=== PATIENT | male | born 1950 | race Caucasian/White ===

== ENCOUNTER 2022-09-09 10:59 | Day surgery (SDC) | payer MEDICARE, BC ==
[2022-09-09] MEDS ORDERED: PROPOFOL 500 MG/50 ML 500 MG/50 ML VIAL ONE (11:12)
--- NOTE | 2022-09-09 11:13 | ANESTHESIA ---
Pre-Anesthesia VS, & Labs - Diagnosis screening - Procedure colonoscopy - NPO Other (prep as directed) Home Medications and Allergies Home Medications: Ambulatory Orders Rosuvastatin Calcium [Crestor] 10 mg PO DAILY 09/08/22 Rosuvastatin Calcium [Crestor] 10 mg PO DAILY 09/08/22 Allergies/Adverse Reactions: Allergies Allergy/AdvReac Type Severity Reaction Status Date / Time No Known Drug Allergies Allergy Verified 09/09/22 10:57 Anes History & Medical History - Anesthetic History Anesthesia Complications: reports: No previous complications - Medical History Cardiovascular: reports: High cholesterol Pulmonary: reports: None Gastrointestinal: reports: None Urinary: reports: None Musculoskeletal: reports: None Endocrine/Autoimmune: reports: None Skin: reports: None - Surgical History General: reports: Colonoscopy Dermatologic: reports: Skin cancer surgery Exam General: Alert, Oriented x3 Dental: WNL Mouth Opening: Greater than 4 Fingerbreadths Neck Mobility: Normal Mallampati classification: II Respiratory: Lungs clear Cardiovascular: Regular rate Plan Anesthesia Type: Total IV Consent for Procedure(s) Verified and Reviewed: Yes Code Status: Attempt Resuscitation ASA classification: 2-Mild systemic disease Is this case an emergency?: No
[2022-09-09] MEDS ORDERED: LACTATED RINGERS 1,000 ML IV ONE (11:46)
[2022-09-09] MEDS ORDERED: LACTATED RINGERS 700 ML IV ONE (12:31)
[2022-09-09 12:54] VITALS: BP 129/81
--- NOTE | 2022-09-09 13:14 | ANESTHESIA POST OP EVALUATION ---
Anesthesia Post Eval - Post Anesthesia Eval Vitals: Last Vital Signs Temp 36.0 C L 09/09/22 12:53 Pulse 72 09/09/22 12:53 Resp 16 09/09/22 12:53 BP 129/81 H 09/09/22 12:53 Pulse Ox 100 09/09/22 12:53 O2 Flow Rate CV Function Including HR & BP: Stable Pain Control: Satisfactory Nausea & Vomiting: Negative Mental Status: Baseline Respiratory Status: Airway Patent Hydration Status: Satisfactory Anesthesia Complications: None
== END 2022-09-09 11:00 | disposition home or self-care (01) ==
LOC: SDS 10:59
PROVIDERS: ATTEND Surgery
DX: Z12.11 Encounter for screening for malignant neoplasm of colon (principal); K57.30 Diverticulosis of large intestine without perforation or abscess without bleeding; K64.8 Other hemorrhoids
CPT/HCPCS: G0121; J7120

== ENCOUNTER 2023-03-18 08:00 | Outpatient (CLI) | payer MEDICARE, BC | END 2023-03-18 23:59 | disposition home or self-care (01) | LOC: LAB 08:00 | PROVIDERS: ATTEND Family Medicine | DX: R30.0 Dysuria (principal); Z12.5 Encounter for screening for malignant neoplasm of prostate | CPT/HCPCS: 36415; 87086; G0103; 80053; 80061; 83721; 84153 ==

== ENCOUNTER 2023-03-18 15:28 | Outpatient (CLI) | payer MEDICARE, BC | END 2023-03-18 15:29 | disposition home or self-care (01) | LOC: LAB.N 15:28 | PROVIDERS: ATTEND Nurse Practitioner Family | DX: Z12.5 Encounter for screening for malignant neoplasm of prostate (principal) | CPT/HCPCS: 36415; G0103; 80053; 80061; 83721; 84153 ==

== ENCOUNTER 2023-03-19 15:58 | Outpatient (CLI) | payer MEDICARE, BC ==
--- NOTE | 2023-03-20 01:35 | Ultrasound Report ---
PROCEDURE: Duplex Upr Ext Arterial LT INDICATIONS: LEFT ARM PAIN TECHNIQUE: Color and pulse Doppler interrogation was performed of left upper extremity arterial systems, with im age documentation. COMPARISON: None. FINDINGS: Normal-appearing, triphasic waveforms are seen. No focal increased flow velocity is seen to suggest a hemodynamically significant stenosis. No significant grayscale abnormality is seen. IMPRESSION: No hemodynamically significant stenosis is detected. Reviewed by: Sarwat Altamirano MD on 03/20/2023 12:34 AM [facility] Approved by: Sarwat Altamirano MD on 03/20/2023 12:34 AM [facility] Station ID: [id number]
== END 2023-03-19 15:59 | disposition home or self-care (01) ==
LOC: DI 15:58
PROVIDERS: ATTEND Nurse Practitioner Family
DX: M79.602 Pain in left arm (principal)

== ENCOUNTER 2023-03-25 08:00 | Outpatient (CLI) | payer MEDICARE, BC | END 2023-03-25 23:59 | disposition home or self-care (01) | LOC: LAB 08:00 | PROVIDERS: ATTEND Urology | DX: R30.0 Dysuria (principal) | CPT/HCPCS: 87086 ==

== ENCOUNTER 2023-04-12 07:57 | Day surgery (SDC) | payer MEDICARE, BC ==
[2023-04-12] MEDS ORDERED: ceFAZolin 2 GM VIAL ONE (08:20)
[2023-04-12] MEDS ORDERED: LACTATED RINGERS 1,000 ML IV ONE ×2 (08:49→10:44)
--- NOTE | 2023-04-12 09:21 | ANESTHESIA ---
Pre-Anesthesia VS, & Labs - Diagnosis bladder tumor - Procedure TURP Vital Signs: Temp Pulse Resp BP Pulse Ox O2 Flow Rate 36 C L 60 14 125/75 100 04/12/23 08:34 04/12/23 08:34 04/12/23 08:34 04/12/23 08:34 04/12/23 08:34 Height: 5 ft 10 in Weight (kg): 76.9 kg Body Mass Index: 24.3 BMI Classification: Normal - NPO >8 hours Home Medications and Allergies Home Medications: Ambulatory Orders Multivitamin 1 each PO DAILY 04/09/23 Propranolol [Inderal] 10 mg PO BID 04/09/23 Rosuvastatin Calcium [Crestor] 10 mg PO DAILY 09/08/22 Multivitamin 1 each PO DAILY 04/09/23 Propranolol [Inderal] 10 mg PO BID 04/09/23 Allergies/Adverse Reactions: Allergies Allergy/AdvReac Type Severity Reaction Status Date / Time No Known Drug Allergies Allergy Verified 09/09/22 10:57 Anes History & Medical History - Anesthetic History Anesthesia Complications: reports: No previous complications - Medical History Cardiovascular: reports: High cholesterol Pulmonary: reports: None Gastrointestinal: reports: None Urinary: reports: Benign prostate hypertrophy Neuro: reports: Other (hands tremor, takes propranolol for) Musculoskeletal: reports: None Endocrine/Autoimmune: reports: None Skin: reports: None Smoking Status: Never smoker Psychosocial: reports: Alcohol (rare wine) - Surgical History General: reports: Colonoscopy Dermatologic: reports: Skin cancer surgery Exam General: Alert Dental: WNL Mouth Opening: Greater than 4 Fingerbreadths Neck Mobility: Normal Mallampati classification: II Thyromental Distance: 4-6 cm Respiratory: Lungs clear Cardiovascular: Regular rate Plan Anesthesia Type: General, MAC, Total IV Consent for Procedure(s) Verified and Reviewed: Yes Code Status: Attempt Resuscitation ASA classification: 2-Mild systemic disease Is this case an emergency?: No
[2023-04-12] MEDS ORDERED: LIDOCAINE 2% URO-JET 5 ML SYRINGE UR ONE ×2 (09:46→10:25)
[2023-04-12] MEDS ORDERED: PROPOFOL 200 MG/20 ML VIAL IVP ONE (09:58)
[2023-04-12] MEDS ORDERED: LIDOCAINE-PF 2% 10 ML AMP SUBQ ONE (09:58)
[2023-04-12] MEDS ORDERED: fentaNYL 100 MCG/2 ML VIAL ONE (09:58)
[2023-04-12] MEDS ORDERED: ONDANSETRON 4 MG/2 ML VIAL IVP PRN ×2 (10:41→10:49)
[2023-04-12] MEDS ORDERED: ONDANSETRON 4 MG/2 ML VIAL ONE (10:41)
--- NOTE | 2023-04-12 10:47 | Discharge Plan ---
Discharge Plan Problem Reviewed?: Yes Disposition: Home, Self Care Condition: Good Prescriptions: Docusate Sodium 100Mg Capsule [Colace 100Mg Capsule] 100 mg PO DAILY #7 cap HYDROcod/ACETAM 5/325 [Divide 5/325] 1 tab PO Q4H PRN #10 tablet PRN Reason: Pain Diet: Regular Activity Restrictions: Additional Comments (no heavy lifting for two weeks) Shower Restrictions: No Driving Restrictions: No Instruction Topics: Transureth Bladder Tumor Resect Dc No Smoking: If you smoke, Please STOP! Call for help. Follow-up with: Rob Jerome MD [Provider Admit Priv/Credential] -
[2023-04-12] MEDS ORDERED: MORPHINE 2 MG/ML CARPUJECT IVP PRN (10:49)
[2023-04-12] MEDS ORDERED: METOCLOPRAMIDE 10 MG/2 ML VIAL IVP PRN (10:49)
[2023-04-12] MEDS ORDERED: fentaNYL 100 MCG/2 ML VIAL IVP PRN (10:49)
[2023-04-12] MEDS ORDERED: ePHEDrine 50 MG/ML VIAL IVP PRN (10:49)
[2023-04-12] MEDS ORDERED: NALOXONE 0.4 MG/ML VIAL IVP PRN (10:49)
[2023-04-12] MEDS ORDERED: ATROPINE ABBOJECT 1 MG/10 ML SYRINGE IVP PRN (10:49)
[2023-04-12] MEDS ORDERED: HYDROmorphone 0.5 MG/0.5 ML SYRINGE IVP PRN (10:49)
--- NOTE | 2023-04-12 10:49 | OPERATIVE REPORT ---
Operative Report - General Planned Procedure: Cystoscopy, transurethral resection of bladder tumor Pre-Op Diagnosis: bladder mass Procedure Performed: cystoscopy, transurethral resection of bladder tumor (2cm) Post Op Diagnosis: bladder mass - Procedure Note Primary Surgeon: Justus Anesthesia Technique: General LMA Pathology: Bladder tumor 1 Bladder tumor 2 Estimated Blood Loss (mL): 5 Indications: bladder mass, hematuria Findings: 2cm papillary mass on right posterior wall, just posterior to right UO Left UO not seen Sessile mass on left wall extending to midline through trigone Very large median lobe prostate Complications: none - Other Other Information/Narrative: After informed consent was obtained the patient was brought to the OR and laid in the supine position. He was then anesthetized per anesthesia protocols. He was placed in the dorsolithotomy position. He was prepped and draped in the usual sterile fashion. A formal timeout was performed reconfirming the patient procedure and laterality. A 27 Turkmen resectoscope was advanced into the urinary bladder. His urethra was normal. He had a very large prostate with a significant median lobe. His bladder was inspected and noted to have multiple small diverticula in the right posterior wall. There was a 2 cm papillary mass emanating from the right posterior wall just behind the ureteral orifice on the right. On the left posterior wall there was a atypical mucosal area extending from the left posterior wall about penitentiary up and then extending medially to the trigone. The left UO was not identified with confidence. Using a bipolar loop the papillary mass was resected and spot cautery was used for hemostasis. This mass was sent as bladder tumor 1. A biopsy of the left mass was then taken using the loop, again spot cautery used for hemostasis. This was sent as bladder tumor 2. At the conclusion of procedure there was excellent hemostasis. The bladder was emptied, the resectoscope was removed, and a Uro-Jet was placed. The patient was reversed from anesthesia and brought to the PACU without further incident. He will follow-up in 1 week's time. All counts were correct.
[2023-04-12] MEDS ORDERED: LACTATED RINGERS 1,000 ML IV SCH (11:00)
[2023-04-12] MEDS: HYDROcod/ACETAM 5/325 MG TABLET PO PRN ×2 (11:26→12:37)
[2023-04-12] MEDS ORDERED: HYDROcod/ACETAM 5/325 MG TABLET ONE ×2 (11:32→12:43)
[2023-04-12 12:37] VITALS: BP 123/70; O2SAT 99
--- NOTE | 2023-04-12 13:36 | ANESTHESIA POST OP EVALUATION ---
Anesthesia Post Eval - Post Anesthesia Eval Vitals: Last Vital Signs Temp 36.2 C L 04/12/23 12:30 Pulse 52 L 04/12/23 12:30 Resp 16 04/12/23 12:30 BP 123/70 04/12/23 12:30 Pulse Ox 99 04/12/23 12:30 O2 Flow Rate CV Function Including HR & BP: Stable Pain Control: Satisfactory Nausea & Vomiting: Negative Mental Status: Baseline Respiratory Status: Airway Patent Hydration Status: Satisfactory Anesthesia Complications: None
== END 2023-04-12 07:58 | disposition home or self-care (01) ==
LOC: SDS 07:57
PROVIDERS: ATTEND Urology
PROC: 0TBB8ZZ Excision of Bladder, Via Natural or Artificial Opening Endoscopic (ICD-10-PCS; principal; 2023-04-12 09:45)
DX: C67.4 Malignant neoplasm of posterior wall of bladder (principal)
CPT/HCPCS: 52234; A9270; J7120

== ENCOUNTER 2023-04-16 13:52 | Outpatient (CLI) | payer MEDICARE, BC ==
[2023-04-16 15:09] LABS: CREATININE 0.8 mg/dL (0.6-1.3)
[2023-04-16] MEDS ORDERED: iohexoL-300 100 ML VIAL IVP ONE (15:17)
--- NOTE | 2023-04-16 16:57 | CT Report ---
PROCEDURE: IVP INDICATIONS: HEMATURIA CONTRAST: 140ml omni 300 TECHNIQUE: After the administration of intravenous contrast, 5 mm thick sections acquired from the diaphragms to the symphysis. 5 mm thick coronal and sagittal reformats were acquired. For radiation dose reducti on, the following was used: automated exposure control, adjustment of mA and/or kV according to rosa ent size. COMPARISON: None. FINDINGS: Image quality: Excellent. Urinary system: Both kidneys are normal in size. Nonobstructive 4 mm stone in the inferior calyx of the right kidney. No solid masses or complex cysts which require follow up. The opacified renal calyc es and ureters appear normal, without filling defect. The superior, lateral, left side of the urinar y bladder wall demonstrates irregular thickening with ulceration. There is perivesicular fat strandin g adjacent to this region. Gas within the urinary bladder. OTHER Lung bases and heart: Unremarkable. Liver: No solid mass. Gallbladder and biliary tree: No radiopaque stones or wall thickening. No biliary dilation. Spleen: No splenomegaly. Pancreas: No pancreatic ductal dilation. Adrenals: No adrenal nodule. Bowel and peritoneum: No bowel distension. No pathologic free fluid. Diverticulosis without evidence of diverticulitis. Abdominal Lymph nodes: No central or retroperitoneal adenopathy. Vessels: Unremarkable. Reproductive organs: Unremarkable. Pelvic Lymph nodes: Unremarkable. Bones: No aggressive osseous abnormality. Other: None. IMPRESSION: The superior, lateral, left side of the urinary bladder wall demonstrates irregular thickening with u lceration. There is perivesicular fat stranding adjacent to this region. Findings are concerning for malignancy. Direct visualization is recommended. Gas within the urinary bladder, which may indicate infection or be a sequela of recent instrumentatio n. Reviewed by: Jonel Gibbs on 04/16/2023 4:55 PM PDT Approved by: Jonel Gibbs on 04/16/2023 4:55 PM PDT Station ID: [id number]
== END 2023-04-16 13:53 | disposition home or self-care (01) ==
LOC: DI 13:52
PROVIDERS: ATTEND Urology
DX: R31.9 Hematuria, unspecified (principal); N32.89 Other specified disorders of bladder
CPT/HCPCS: 36415; 74178; 82565; Q9967